=== PATIENT | female | born 1960 | race Caucasian/White ===

== ENCOUNTER 2017-10-08 23:52 | Emergency (ER) | payer OTHER ==
--- NOTE | 2017-10-08 23:58 | PDOC ---
History of Present Illness - General Chief Complaint: Chest Pain Stated Complaint: CHEST PAIN Time Seen by Provider: 10/08/17 23:58 History Source: Patient Exam Limitations: No Limitations - History of Present Illness Initial Comments: 10/09/17 00:34 This is a 57-year-old female who comes in complaining of chest tightness and bilateral hands and arm numbness. Patient on arrival in the emergency room was noted to be very anxious and hyperventilating. Patient has had multiple workups for similar symptoms including a nuclear stress test multiple cardiograms and blood work all of which appear normal. Patient denied any nausea, diaphoresis or any other associated symptoms. Patient has a family history of coronary artery disease with 3 brothers who have coronary artery disease. PAST MEDICAL HISTORY: no significant history PAST SURGICAL HISTORY: no significant history FAMILY HISTORY: no pertinant history SOCIAL HISTORY: Pt lives with family and is employed. MEDICATIONS: reviewed ALLERGIES: As per nursing notes Review of Systems General: No fevers or chills, no weakness, no weight loss HEENT: No change in vision. No sore throat,. No ear pain CardioVascular: No chest pain or shortness of breath Respiratory:No cough, or wheezing. Gastrointestinal: no nausea, vomitting, diarrhea or constipation, No rectal bleeding Genitourinary: No dysuria, hematuria, or frequency Musculoskeletal: No joint or muscle pain or swelling Neurologic: No headache, vertigo, dizziness or loss of consciousness Psychiatric: nor depression Skin: No rashes or easy bruising Endocrine: no increased thirst or abnormal weight change Allergic: no skin or latex allergy All other systems reviewed and normal Exam: General: Well-nourished well-developed individual, no acute distress HEENT: Throat: Normal, tonsils normal, no erythema or exudate Neck: Supple, no meningeal signs, no lymphadenopathy Eyes::Pupils equal reactive and round, extraocular motion intact Chest: Nontender to palpation Cardiac: S1-S2 normal, regular rate and rhythm, no murmurs rubs or gallops Respiratory: Lungs clear to auscultation bilateral Abdomen: Soft, nondistended, normal bowel sounds, nontender to palpation diffusely Extremities: Warm, dry, no cyanosis, clubbing, or edema Skin: No rashes Neuro: Alert and oriented x3, CN II - XII intact, nonfocal exam with normal strength, normal sensation, normal reflexes, normal gait, Psych: Normal mood and affect EKG shows normal sinus rhythm at a rate of 62, normal intervals, no acute ST-T wave changes, normal EKG Patient was given 0.5 mg xanax with near complete resolution of her symptoms and discharged home. Past History - Past Medical History Allergies/Adverse Reactions: Allergies Allergy/AdvReac Type Severity Reaction Status Date / Time Penicillins Allergy Verified 05/22/15 21:40 sulfur [From Sulfur-8] Allergy Verified 05/22/15 21:40 Home Medications: Ambulatory Orders Atorvastatin Ca [Lipitor] 40 mg PO HS 10/09/17 - Suicide/Smoking/Psychosocial Hx Smoking History: Never smoked Have you smoked in the past 12 months: No Hx Alcohol Use: No Drug/Substance Use Hx: No Substance Use Type: None *Physical Exam - Vital Signs Last Vital Signs Temp Pulse Resp BP Pulse Ox 97.7 F 68 15 163/85 99 10/08/17 23:56 10/08/17 23:56 10/08/17 23:56 10/08/17 23:56 10/08/17 23:56 *DC/Admit/Observation/Transfer Diagnosis at time of Disposition: Anxiety about health - Discharge Dispostion Disposition: HOME Condition at time of disposition: Good Decision to Admit order: No - Referrals - Patient Instructions Additional Instructions: Return to the emergency department immediately with ANY new, persistent or worsening symptoms. Continue any medications as previously prescribed by your physician. You should follow up with your primary doctor as soon as possible regarding today's emergency department visit. . Please make sure your doctor reviews the results of your emergency evaluation. Thank you for coming to the Emergency Department today for your care. It was a pleasure to see you today. Please note that your evaluation is INCOMPLETE until you follow-up with your doctor. - Post Discharge Activity
[2017-10-08 23:59] VITALS: BP 163/85; PULSE 68; TEMP 97.7; BMI 22.3
[2017-10-09] MEDS ORDERED: ALPRAZolam 1 MG TABLET PO PRN (00:11)
[2017-10-09] MEDS ORDERED: ALPRAZolam 0.25 MG TABLET ONE (00:29)
--- NOTE | 2017-10-10 12:06 | EKG ---
Test Reason : Blood Pressure : / mmHG Vent. Rate : 062 BPM Atrial Rate : 062 BPM P-R Int : 150 ms QRS Dur : 090 ms QT Int : 410 ms P-R-T Axes : 062 023 042 degrees QTc Int : 416 ms NORMAL SINUS RHYTHM NORMAL ECG NO PREVIOUS ECGS AVAILABLE Confirmed by CARLINE WOODY, JNAICE ([id number]) on 10/10/2017 12:06:07 PM Referred By: MD WELCH Confirmed By:JANICE CROWLEY MD
== END 2017-10-09 00:37 | disposition home or self-care (01) ==
LOC: FER 23:52
DX: F41.8 Other specified anxiety disorders (principal); Z88.0 Allergy status to penicillin; Z88.2 Allergy status to sulfonamides
CPT/HCPCS: 93005; 99283-25